=== PATIENT | male | born 1995 | race Caucasian/White ===

== ENCOUNTER 2020-11-27 04:20 | Emergency (ER) | payer OTHER, SELFPAY ==
[2020-11-27 04:28] VITALS: BP 150/83; PULSE 76; RESP 20; TEMP 36.6; O2SAT 100
--- NOTE | 2020-11-27 05:07 | ED.ABDPAIN ---
HPI - Abdominal Pain General Chief Complaint: Abdominal Pain Stated Complaint: abdominal pain Time Seen by Provider: 11/27/20 05:06 Source: patient Mode of arrival: ambulatory Limitations: no limitations History of Present Illness HPI narrative: Patient is a 25-year-old male complaining of upper abdominal pain, described as burning, 5 out of 10, nonradiating that started last night. Patient states that he took some [id number] medication that helped but the pain has recurred. Patient denies any chest pain, shortness of breath, nausea, vomiting, diarrhea, fever or chills. Related Data Allergies Allergy/AdvReac Type Severity Reaction Status Date / Time No Known Allergies Allergy Verified 11/27/20 04:21 Review of Systems Review of Systems: All systems reviewed & are unremarkable except as noted in HPI and below Constitutional: Constitutional: Denies body ache(s), Denies chills, Denies excessive sweating, Denies fatigue, Denies fever(s), Denies headache(s), Denies lethargy, Denies malaise, Denies weakness and Denies weight loss Eyes: Eyes: Denies blurry vision, Denies change in vision and Denies loss of vision ENT: Denies dizziness, Denies ear discharge, Denies headache(s), Denies lip swelling, Denies epistaxis, Denies nasal congestion, Denies neck pain, Denies throat swelling and Denies tongue swelling Cardiovascular: Cardiovascular: Denies chest pain, Denies chest pain at rest, Denies chest pain with activity, Denies diaphoresis, Denies rapid heart rate, Denies edema, Denies irregular heart rhythm, Denies lightheadedness, Denies palpitations, Denies dyspnea and Denies dyspnea on exertion Respiratory: Respiratory: Denies chest congestion, Denies cough, Denies hemoptysis, Denies dyspnea and Denies dyspnea on exertion Gastrointestinal: Gastrointestinal: Denies melena, Denies hematochezia, Denies diarrhea, Denies nausea, Denies vomiting and Denies hematemesis Musculoskeletal: Musculoskeletal: Denies abnormal gait, Denies deformity, Denies joint swelling, Denies limited range of motion, Denies neck pain and Denies numbness Neurologic: Denies Abnormal speech present, Denies abnormal gait, Denies confusion, Denies dizziness, Denies headache(s), Denies focal weakness, Denies loss of vision, Denies numbness, Denies Other visual disturbances, Denies Sensory deficit (Neuro) and Denies weakness Psychiatric: Psychiatric: Denies confusion, Denies depression, Denies auditory hallucinations, Denies homicidal ideation and Denies suicidal ideation Endocrine: Endocrine: Denies cold intolerance, Denies excessive sweating, Denies fatigue, Denies heat intolerance and Denies palpitations Hematologic/Lymphatic: Hematologic/Lymphatic: Denies easy bleeding and Denies easy bruising Allergic/Immunologic: Allergic/Immunologic: Denies lip swelling, Denies throat swelling and Denies tongue swelling PMFSH Past Medical History Medical History Ankle impingement syndrome, right Anxiety Coughing Fever Osteochondral lesion of talar dome Family History Family History Mother Family history of thyroid disease Hypertension Family history of heart disease in male family member before age 55 Sibling Family history of thyroid disease Father Depression Hypertension Other Arthritis Social History Social History Second hand tobacco smoke exposure: No Alcohol intake: current Substance use: current Last use: patient stated that he has not used marijuana in 4 months Gender identity (if verbalized by the patient): Male Exam Const: General: cooperative, healthy appearing, comfortable, no acute distress, well developed, alert and awake; No confusion Orientation/consciousness: oriented to person, oriented to place, oriented to time, patient oriented x3 and No confusion Limitati
[2020-11-27 05:11] LABS: Basophils Absolute Auto 0.1 K/mm3 (0.0-0.1); Basophils Percent Auto 0.5 % (0.2-1.2); Eosinophils Absolute Auto 0.1 K/mm3 (0-0.3); Eosinophils Percent Auto 0.6 % (0-4.4); Hematocrit 43.3 % (42.0-52.0); Hemoglobin 15.2 g/dL (14.0-18.0); Immature Granulocyte Absolute 0.06 K/mm3 (0.00-0.031); Immature Granulocyte Percent A 0.5 % (0-0.5); Lymphocytes Absolute Auto 1.53 K/mm3 (0.9-3.2); Lymphocytes Percent Auto 13.2 % (18.3-44.2); Mean Corpuscular HGB Conc 35.1 g/dl (32-36); Mean Corpuscular Hemoglobin 29.2 pg (26-34); Mean Corpuscular Volume 83.3 fl (80-100); Mean Platelet Volume 10.4 fl (7.4-10.4); Monocytes Percent Auto 8.3 % (2.6-8.5); Neutrophils Absolute Auto 8.9 K/mm3 (1.3-6.7); Neutrophils Percent Auto 76.9 % (45.5-73.1); Platelet Count Result 258 k/mm3 (150-375); Red Cell Distribution Width 12.6 % (11.5-14.5); White Blood Count 11.6 K/mm3 (4.5-10.0)
[2020-11-27 05:20] LABS: Alanine Aminotransferase 35 U/L (4-50); Albumin Level 4.9 g/dL (3.5-5.1); Alkaline Phosphatase 63 U/L (38-126); Anion Gap 10 mmol/L (8-16); Aspartate Amino Transferase 26 U/L (17-59); Bilirubin,Total 0.6 mg/dL (0.2-1.3); Blood Urea Nitrogen 9 mg/dL (9-20); Calcium 9.8 mg/dL (8.4-10.2); Carbon Dioxide 29 mmol/L (22-30); Chloride 101 mmol/L (98-107); Estimated CRCL calculation 188 ml/min; Estimated Glomerular Filt Rate > 60; Glucose 117 mg/dL (75-110); Lipase 65 U/L (23-300); Potassium 3.1 mmol/L (3.4-5.0); Sodium 140 mmol/L (137-145)
[2020-11-27 05:37] LABS: Add Urine Microscopic? YES; Appearance Urine Clear (Clear); Bacteria Urine Trace /hpf; Bilirubin Urine Negative (Negative); Blood Urine Negative (Negative); Calcium Oxalate Crystals Urine Present /hpf; Color Urine Yellow (Yellow); Glucose Urine UA Negative (Negative); Ketones Urine 1+ mg/dL (Negative); Leukocyte Esterase Ur Negative LEU/UL (Negative); Mucus Urine Rare /lpf; Nitrate Urine Negative (Negative); Protein Urine 1+ mg/dL (Negative); Urobilinogen Urine Negative mg/dL (<2.0); WBC Urine 0-3 /hpf
[2020-11-27] MEDS: FAMOTIDINE 20 MG TABLET 40 MG PO (05:40)
[2020-11-27] MEDS: BELLADONNA ALK/PHENOB ELIX 10 ML, MAG HYDROX/ALUMINUM HYD/SIMETH 30 ML, LIDOCAINE HCL 2... PO (05:41)
[2020-11-27 05:55] VITALS: BP 126/76; PULSE 58; RESP 20; O2SAT 100
--- NOTE | 2020-11-27 06:03 | ECG_ITS ---
Measurements Intervals [place] Rate: 57 P: 42 [place]: 181 QRS: 61 QRSD: 100 T: 39 QT: 408 QTc: 398 Interpretive Statements SINUS BRADYCARDIA WITH SINUS ARRHYTHMIA BORDERLINE ECG Electronically Signed On 11-27-2020 7:35:26 CDT by Ren Burnham D.O.
[2020-11-27 06:19] VITALS: BP 119/72; PULSE 77; RESP 20; O2SAT 100
[2020-11-27] MEDS: POTASSIUM CHLORIDE 20 MEQ PACKET (FOR LIQUID) 40 MEQ PO (06:19)
== END 2020-11-27 06:49 | disposition home or self-care (01) ==
PROVIDERS: Emergency Provider Emergency Medicine; PCP Internal Medicine
DX: K29.00 Acute gastritis without bleeding (principal)
CPT/HCPCS: 36415; 80053; 81001; 83690; 85025; 93005; 99283; A9270

== ENCOUNTER 2024-11-11 17:17 | Emergency (ER) | payer OTHER, SELFPAY ==
--- NOTE | 2024-11-11 17:19 | ED.EAR ---
HPI - Ear Problem General Chief complaint: Ear Stated complaint: Right Earache Time Seen by Provider: 11/11/24 17:20 Source: patient Mode of arrival: ambulatory Limitations: no limitations History of Present Illness HPI Narrative: Brian is a 29 year old male patient presenting to the clinic today with complaints of right ear pain x3 days. He reports no fever, chills, body aches, runny nose, cough, or congestion. No recent swimming. Related Data Home Medications ?Medication ?Instructions ?Recorded ?Confirmed ?Last Taken ?Type multivit,calc,mins-folic 240 1 tablet PO DAILY 05/05/21 10/15/24 Unknown History mcg-vit K1 30 mcg-lycopene 300 mcg tablet (One-A-Day Men's Complete) cholecalciferol (vitamin D3) 50 50 mcg PO DAILY 10/15/24 10/15/24 Unknown History mcg (2,000 unit) capsule Allergies Allergy/AdvReac Type Severity Reaction Status Date / Time No Known Allergies Allergy Verified 10/15/24 08:23 Review of Systems Review of Systems: Pertinent positives per HPI. Patient denies any fever, chills, rash, headache, visual changes, dizziness, cough, runny nose, sore throat, shortness of breath, chest pain, palpitations, nausea, vomiting, diarrhea, constipation, abdominal pain, or any urinary issues. [facility] Past Medical History Medical History Anxiety Coughing Fever Ankle impingement syndrome, right Osteochondral lesion of talar dome Family History Family History Mother Family history of thyroid disease Hypertension Family history of heart disease in male family member before age 55 Heart disease Sibling Family history of thyroid disease Hypertension Father Depression Hypertension Alcoholism Diabetes mellitus Other Arthritis Social History Social History Smoking status: Never smoker Second hand tobacco smoke exposure: No Alcohol intake: former Substance use: never Last use: patient stated that he has not used marijuana in 4 months Do You Feel Safe in your Home?: Yes Lack of Transportation: No Lack of Food: Never True Current Housing: Decline to Answer Concerned About Future Housing: Decline to Answer Difficulty Paying Gas/Electric Bills: Decline to Answer Difficulty Paying for Meds: Decline to Answer Currently Unemployed: Decline to Answer Education: Decline to Answer Difficulty w/ Childcare or Family Care: Decline to Answer Occupation/Education: occupation Gender identity (if verbalized by the patient): Male Spiritual care concerns: No Agree to blood products: Yes Comments At the time of my signature, I reviewed and agree with the nursing past medical, surgical, social, and family history. There is no relevant family history pertinent to the patient complaint. Exam Narrative: General: Well-developed, well nourished, in no apparent distress Head: Normocephalic, atraumatic Eyes: Pupils equally round and reactive to light bilaterally, EOM intact, sclera and conjunctive clear, no discharge, lids normal Ears: Left TMs intact and clear, right TM intact, bulging, red, ear canals clear, no drainage, grossly hearing normal. Nose: Nares patent, no discharge, no inflammation, no sinus tenderness. Mouth: Oropharynx without lesions or masses, good dentition, MMM. Neck: Supple, trachea midline, no enlargement of anterior or posterior cervical nodes, no thyroid masses or goiter palpable. Cardio: Regular rate and rhythm, s1 and s2 normal, no murmur appreciated. Resp: Clear to auscultation bilaterally anteriorly and posteriorly, no rhonchi, rales, wheezing or rubs Course Course Emergency Course: Portions of this record may have been created with voice recognition software. Level of Care: Express Care Visit Vital Signs Vital signs: Vital signs reviewed Medical Decision Making MDM Narrative Medical decision making narrative: At the time of visit patient is resting comfortably on the exam table. Patient appears to be nontoxic. Plan: I suspect patient has right otitis media. Prescription for amoxicillin was sent to pharmacy. Supportive measures were discussed with the patient and they voiced understanding discharge instructions and agrees to treatment plan. Return precautions reviewed Differential Diagnosis Differential Diagnosis: Otitis media, otitis externa, eustachian tube dysfunction, cerumen impaction, upper respiratory infection, serous otitis Discharge Plan Discharge Clinical Impression: Acute right otitis media Patient Disposition: Home Condition: Stable Instructions: Antibiotic Form, Ear Infection (ED) Additional Instructions: Take any prescribed medications only as directed-amoxicillin Tylenol/motrin as needed for pain May use heating pad to alleviate pain If you get recurrent ear infections it may be warranted to follow up with ENT. Follow up with your PCP in 3-5 days if symptoms persist. Patient Language: Sri Lankan Prescriptions: New amoxicillin 875 mg tablet 875 mg PO Q12H 7 Days Qty: 14 0RF No Action cholecalciferol (vitamin D3) 50 mcg (2,000 unit) capsule 50 mcg PO DAILY One-A-Day Men's Complete 240 mcg-30 mcg- 300 mcg tablet 1 tablet PO DAILY hydrochlorothiazide 12.5 mg tablet 12.5 mg PO DAILY Qty: 90 1RF Follow-up/Referrals: Heidi Pimentel APRN [Primary Care Provider] - Time of Disposition: 17:27 Quality NIHSS Nursing Documentation ED NIHSS nursing documentation: reviewed/agree
[2024-11-11 17:25] VITALS: BP 120/78; PULSE 83; RESP 20; TEMP 36.8; O2SAT 99
== END 2024-11-11 17:30 | disposition home or self-care (01) ==
PROVIDERS: Emergency Provider Nurse Practitioner Family; PCP Nurse Practitioner Family
DX: H66.91 Otitis media, unspecified, right ear (principal)
CPT/HCPCS: 99213; G0463

== ENCOUNTER 2024-11-17 14:28 | Emergency (ER) | payer OTHER, SELFPAY ==
[2024-11-17 14:39] VITALS: BP 138/81; PULSE 96; RESP 16; TEMP 36.4; O2SAT 100
--- NOTE | 2024-11-17 14:44 | ED_ITS ---
HPI - Ear Problem General Chief complaint: Ear Stated complaint: L EARACHE Time Seen by Provider: 11/17/24 14:44 Source: patient Mode of arrival: ambulatory Limitations: no limitations History of Present Illness HPI Narrative: 9-year-old male presented for complaint of left ear pain and drainage and decreased hearing. Onset yesterday. Patient is currently taking amoxicillin for a right ear infection as prescribed on 11/11. Says the right ear pain is improved. denies dizziness, tinnitus, nausea vomiting fevers chills. MD Complaint: ear pain Related Data Home Medications Medication Instructions Recorded Confirmed Last Taken Type multivit,calc,mins-folic 240 1 tablet PO DAILY 05/05/21 11/17/24 Unknown History mcg-vit K1 30 mcg-lycopene 300 mcg tablet (One-A-Day Men's Complete) cholecalciferol (vitamin D3) 50 50 mcg PO DAILY 10/15/24 11/17/24 Unknown History mcg (2,000 unit) capsule Allergies Allergy/AdvReac Type Severity Reaction Status Date / Time No Known Allergies Allergy Verified 10/15/24 08:23 Review of Systems Review of Systems: CONSTITUTIONAL: Denies malaise, chills, or fever. EYES: Denies visual changes, redness, or discharge. ENT: Denies rhinorrhea, congestion, sinus pain, and sore throat. Reports ear pain CARDIOVASCULAR: Denies chest pain, palpitations, or edema. RESPIRATORY: Denies cough or dyspnea. GASTROINTESTINAL: Denies abdominal pain, nausea, vomiting, diarrhea SKIN: Denies rash or itching. MUSCULOSKELETAL: Denies myalgia. NEUROLOGIC: Denies headache. All systems reviewed & are unremarkable except as noted in HPI and below PMFSH Past Medical History Medical History Anxiety Coughing Fever Ankle impingement syndrome, right Osteochondral lesion of talar dome Family History Family History Mother Family history of thyroid disease Hypertension Family history of heart disease in male family member before age 55 Heart disease Sibling Family history of thyroid disease Hypertension Father Depression Hypertension Alcoholism Diabetes mellitus Other Arthritis Social History Social History Smoking status: Never smoker Second hand tobacco smoke exposure: No Alcohol intake: former Substance use: never Last use: patient stated that he has not used marijuana in 4 months Do You Feel Safe in your Home?: Yes Lack of Transportation: No Lack of Food: Never True Current Housing: Decline to Answer Concerned About Future Housing: Decline to Answer Difficulty Paying Gas/Electric Bills: Decline to Answer Difficulty Paying for Meds: Decline to Answer Currently Unemployed: Decline to Answer Education: Decline to Answer Difficulty w/ Childcare or Family Care: Decline to Answer Occupation/Education: occupation Gender identity (if verbalized by the patient): Male Spiritual care concerns: No Agree to blood products: Yes Comments At time of signature, agree with nursing past medical, surgical, social and family history. There is no relevant family history pertinent to the presenting complaint Exam Narrative: GENERAL: Well-appearing EYES: conjunctivae clear ENT: Nares clear. Mucous membranes moist. Left TM erythematous, bulging and intact; canal erythematous with drainage, no tragal tenderness. Right TM mildly erythematous with purulent effusion. Oropharynx not erythematous without lesions. no drooling, no hoarseness, no trismus, uvula midline. NECK: Supple. No lymphadenopathy CHEST: Clear to auscultation, breath sounds equal. HEART: Regular rate and rhythm. NEURO: Alert and oriented x3. PSYCH: Normal mood and affect Course Course Emergency Course: Patient is aware of diagnosis, understands and agrees to treatment plan. Anticipatory guidance given. Patient agrees to follow-up as directed and is aware of reasons to seek care at the emergency department. Portions of this record may have been created with voice recognition software Level of Care: Express Care Visit Vital Signs Vital signs: Vital Signs Temperature 97.6 F 11/17/24 14:39 Pulse Rate 96 11/17/24 14:39 Respiratory Rate 16 11/17/24 14:39 Blood Pressure 138/81 11/17/24 14:39 Pulse Oximetry 100 11/17/24 14:39 Temperature 97.6 F 11/17/24 14:39 Pulse Rate 96 11/17/24 14:39 Respiratory Rate 16 11/17/24 14:39 Blood Pressure 138/81 11/17/24 14:39 Pulse Oximetry 100 11/17/24 14:39 Reviewed Medical Decision Making MDM Narrative Medical decision making narrative: Discussed physical exam findings consistent with left AOM, OE, and right AOM. Advised supportive measures and signs/symptoms to go to the ER. Patient is appropriate for outpatient treatment and follow-up. Differential Diagnosis Differential Diagnosis: Coronavirus, strep pharyngitis, allergic rhinitis, upper respiratory tract infection, sinusitis, rhinosinusitis, nasopharyngitis, viral pharyngitis, otitis media, otitis externa, eustachian tube dysfunction, foreign body, cerumen impaction. Vital Signs Vital Signs: Vital Signs Temperature 97.6 F 11/17/24 14:39 Pulse Rate 96 11/17/24 14:39 Respiratory Rate 16 11/17/24 14:39 Blood Pressure 138/81 11/17/24 14:39 Pulse Oximetry 100 11/17/24 14:39 Temperature 97.6 F 11/17/24 14:39 Pulse Rate 96 11/17/24 14:39 Respiratory Rate 16 11/17/24 14:39 Blood Pressure 138/81 11/17/24 14:39 Pulse Oximetry 100 11/17/24 14:39 Discharge Plan Discharge Clinical Impression: Otitis externa Qualifiers: Otitis externa type: unspecified type Chronicity: acute Laterality: left Qualified Code(s): H60.502 - Unspecified acute noninfective otitis externa, left ear Otitis media Qualifiers: Otitis media type: suppurative Chronicity: acute Laterality: left Recurrence: non-recurrent Spontaneous tympanic membrane rupture: without spontaneous rupture Qualified Code(s): H66.002 - Acute suppurative otitis media without spontaneous rupture of ear drum, left ear Patient Disposition: Home Condition: Stable Instructions: Antibiotic Form, Swimmer's Ear (ED), Ear Infection (ED) Additional Instructions: Swimmer's ear is an infection in the outer ear canal, which runs from your eardrum to the outside of your head. It's often caused by water that remains in your ear, creating a moist environment that encourages the growth of bacteria. Take antibiotic drops as directed. Tylenol and ibuprofen every 8 hours as needed to reduce fever, pain Avoid water or anything into the ear for one week Take antibiotics as directed. Stop the amoxicillin as prescribed 11/11. Recommend antihistamine such as Benadryl, Zyrtec or Ellie for sinus congestion Flonase nasal spray, 1 spray in each nostril once daily until symptoms improve Symptomatic treatment includes: rest, fluids, and increase humidity of the air at home. Tylenol 1000mg every 8 hours as needed to reduce fever, pain Please schedule a follow-up visit with your personal physician for further evaluation and treatment within 3-5days. If your symptoms persist, change or worsen significantly, go to the emergency department for further evaluation. Patient Language: Nigerien Prescriptions: New amoxicillin-pot clavulanate 875-125 mg tablet 1 tablet PO Q12H 7 Days Qty: 14 0RF ciprofloxacin-dexamethasone 0.3-0.1 % drops,suspension 4 drp LEFT EAR Q12H 7 Days Qty: 7.5 0RF No Action amoxicillin 875 mg tablet 875 mg PO Q12H 7 Days Qty: 14 0RF cholecalciferol (vitamin D3) 50 mcg (2,000 unit) capsule 50 mcg PO DAILY One-A-Day Men's Complete 240 mcg-30 mcg- 300 mcg tablet 1 tablet PO DAILY hydrochlorothiazide 12.5 mg tablet 12.5 mg PO DAILY Qty: 90 1RF Follow-up/Referrals: Heidi Pimentel APRN [Primary Care Provider] - Time of Disposition: 15:04
== END 2024-11-17 15:08 | disposition home or self-care (01) ==
PROVIDERS: Emergency Provider Nurse Practitioner Family; PCP Nurse Practitioner Family
DX: H60.502 Unspecified acute noninfective otitis externa, left ear (principal); H66.002 Acute suppurative otitis media without spontaneous rupture of ear drum, left ear
CPT/HCPCS: 99213; G0463

== ENCOUNTER 2025-02-13 09:09 | Outpatient (CLI) | payer OTHER, SELFPAY ==
--- OUTSIDE RECORDS SUMMARY | 2025-02-13 09:19 | XMS_ITS | Patient Health Record ---
Author Organization [facility] Address [address] [place] [address] Care Team Providers Care Office Agent Name Role Phone Deacon Ortiz Unavailable [phone] Reason For Referral No Information Medications Medication SIG (Take, Route, Frequency, Duration) Notes Start Date End Date Status hydroCHLOROthiazide 12.5 MG Oral 12/24/2020 Active Omeprazole 40 MG Oral 12/24/2020 Ac tive Sertraline HCl 50 MG Oral 12/24/2020 Active Immunizations Vaccine Route Administration Date Status Comme nts DTP Unknown 1997 Administered DTP Unknown 1997 Administered DTP Unknown 04/08/1998 Administered DTP Unknown 06/12/2002 Administered Hep A, ped/adol, 2 dose Unknown 02/10/2012 Administered Hep B, adolescent or pediatr ic (11-19), 3 dose schedule Unknown 1997 Administered Hep B, adolescent or pediatr ic (11-19), 3 dose schedule Unknown 1997 Administered Hep B, adolescent or pediatr ic (11-19), 3 dose schedule Unknown 06/12/2002 Administered Hib, unspecified formulation Unknown 1997 Adminis tered Hib, unspecified formulation Unknown 04/08/1998 Adminis tered Hib, unspecified formulation Unknown 05/17/1998 Adminis tered Influenza virus vaccine, quadrivalent (IIV4), split virus, 0.25 mL dosage Unknown 05/24/2011 Administered Influenza, seasonal, injecta ble, preservative free, 3 yrs and above Unknown 04/10/2015 Administered IPV Unknown 1997 Administered IPV Unknown 1997 Administered IPV Unknown 06/12/2002 Administered IPV Unknown 04/16/2003 Administered [place] Covid-19 Vaccine Unknown 10/11/2020 Administere d Meningococcal MCV4P Unknown 04/10/2015 Administered MMR Unknown 04/07/1998 Administered MMR Unknown 04/16/2003 Administered Novel [id number], preservative free Unknown 05/20/2016 Administered Varicella Unknown 04/16/2003 Administered Varicella Unknown 02/10/2012 Administered Plan Of Treatment No Information Insurance Providers Payer Name Payer Address Payer Phone Subscriber Number Group Number Insured Name Patient Relationship to Insured Coverage Start Date Coverage End Date [facility] [address] [place] [address] [id number] DAT RUANO Self - patient is the insured
--- OUTSIDE RECORDS SUMMARY | 2025-02-13 09:19 | XMS_ITS | Referral Summary ---
Author Organization [facility] - [facility] [place] [address] Care Team Providers Care Tank Welder Name Role Phone Justin Valladares MD Primary Care Provider + [phone] Source Comments The [facility] EMR consists of medical records from all [facility] ([facility]), the [facility] ([facility]), [facility], as well as other affiliates or partners, to include: [facility] in [place], [place], [facility], [facility], [facility], [facility] A[facility]hectics [facility], [facility], [place] [facility]), [place] [facility], and [facility]. The EMR may not contain all information available for this patient pursuant to the Care Everywhere program, as well as varying phases of implementation.[facility] Allergies No known active allergies Medications * Medications may not be up to date as of this document. Always verifycurrent medications with the patient. Cholecalciferol (Vitamin D3) 50 MCG (1999) tab Take 1 tab by mouth one time daily. Active Fluticasone Propionate (Flonase) 50 MCG/ACT nasal spray 2 sprays in each nostril one time daily. 48 g 3 Active Additional Information Patient not taking.Informant: Patient, Reported on 03/23/2024 Sertraline HCl (Zoloft) 50 MG tabIndications:M ood disorder TAKE 1 TABLET BY MOUTH EVERY DAY 90 tab 3 3 Active ONE-A-DAY MENS PO Take by mouth one time daily 1 tab 1 x Daily. Active hydroCHLOROthiaz frank 12.5 MG capIndications:P rimary hypertension Take 1 cap by mouth one time daily. 90 cap 3 4 Active Active Problems Problem Noted Date Diagnosed Date Elevated ALT measurement 03/23/2024 Severe obesity (BMI >= 40) 12/13/2022 Overview (03/23/2024): - minimal change in weight since 04/2023; weight max 341 lbs, wt 03/23/24 337 lbs - with emotional component (controlled), nutrition, snoring - check labs - Continue to work on healthy lifestyle and nutrition - continue w/ nutrition - should get sleep study - medications are an option - no contraindications - patient willing to pay out of pocket - will work with pharmacists in about 1 mo Assessment & Plan (03/23/2024 9:05 AM CDT): - minimal change in weight since 04/2023; weight max 341 lbs, wt 03/23/24 337 lbs - with emotional component (controlled), nutrition, snoring - check labs - Continue to work on healthy lifestyle and nutrition - continue w/ nutrition - should get sleep study - medications are an option - no contraindications - patient willing to pay out of pocket - will work with pharmacists in about 1 mo Assessment & Plan (12/13/2022 4:40 PM CDT): - with emotional component - see pt instructions - start w/ nutrition, noom ree, treat mood - f/u at next visit Primary hypertension 04/23/2022 Overview (03/23/2024): - diagnosed around 2019 - not checking BP at home; will; start checking - goal <120s/70s - HCTZ 12.5 mg qday Assessment & Plan (03/23/2024 8:52 AM CDT): - diagnosed around 2019 - not checking BP at home; will; start checking - goal <120s/70s - at goal - HCTZ 12.5 mg qday - no changes today Assessment & Plan (04/23/2022 10:41 AM CDT): - diagnosed around 2019 - not checking BP at home; will; start checking - goal <130/80 - HCTZ 12.5 mg qday until home BPs Mood disorder 04/23/2022 Overview (03/23/2024): - reports sx since age 15ish; hx major depressive disorder (hx active SI w/ attempt), but also anxious features - at goal as of 2022 - 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 or 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 and depression > adjustment disorder - contributing factors likely include work stress, lower sleep, cutting caffeine - Continue to work on healthy lifestyle and nutrition - sertraline 50 mg qday; worked; will trial off as of 03/23/24 Assessment & Plan (03/23/2024 8:55 AM CDT): - mood at goal now for > 1 year - will try to stop; go back on 50 mg if sx return Assessment & Plan (12/13/2022 4:39 PM CDT): - reports sx since age 15ish; hx major depressive disorder (hx active SI w/ attempt), but also anxious features - reports worsening irritability, anhedonia related to work; more anxiety driven - 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 I am referring them to the Primary Care Behavioral Health Clinician for evaluation and treatment within the Collaborative Care program.- Unable to do warm handoff today and counselor is out of the clinic. Assessment & Plan (04/23/2022 10:43 AM CDT): - hx major depressive disorder, but also anxious features - sertraline 50 mg qday; tolerating this well Immunizations Immunization Administration Dates Next Due COVID-19 (MODERNA 12+YR) MRN A, LNP-S, PF, 50 MCG/0.5 ML VACCINE 03/23/2024 COVID-19(MODERNA Bivalent) m RNA, LNP-S, PF, 50mcg/0.5mL or 25mcg/0.25mL Vaccine (Historical) 06/01/2022 Hepatitis A Vaccine (>/=19 Yrs) 03/23/2024 Influenza, Quadrivalent, Adriana l Culture, MDCK, PF Vaccine 06/01/2022 Influenza, Trivalent, PF Vaccine 03/23/2024 Influenza,Quadrivalent,PF (0.5 mL) Vaccine 04/20,05/20/2016 Social History Tobacco Use Types Packs/Day Years Used Date Smoking Tobacco: Never Passive Smoke Exposure: Never Smokeless Tobacco: Never Tobacco Cessation:Counseling Given: Not Answered Alcohol Use Standard Drinks/Week Comments Not Currently 0 (1 standard drink = 0.6 oz pur e alcohol) Depression Answer Date Recorded PHQ2/9 Depression Score: 0-4 Few to No Symptoms; 5-9 Minimal Symptoms; 10-14 Minor Depression, Dysthymia; 15-19 Major Depression, moderately severe; >20 Major Depression, severe 4 03/23/2024 Sex and Gender Information Value Date Recorded Sex Assigned at Not on file Legal Sex Male 9:46 AM CDT Gender Identity Not on file Sexual Orientation Not on file Last Filed Vital Signs Vital Sign Reading Time Taken Comments Blood Pressure 125/79 03/23/2024 8:42 AM CDT Pulse 88 03/23/2024 8:42 AM CDT Temperature 36.5 C (97.7 F) 12/20/2023 8:53 AM CDT Respiratory Rate 16 03/23/2024 8:42 AM CDT Oxygen Saturation 98% 04/08/2023 3:04 PM CDT Inhaled Oxygen Concentration - - Weight 152.9 kg (337 lb) 03/23/2024 8:45 AM CDT Height 182.5 cm (5' 11.85) 03/23/2024 8:45 AM C DT Body Mass Index 45.9 03/23/2024 8:45 AM CDT Plan of Treatment Not on file Procedures Procedure Name Priority Date/Time Associated Diagnosis Comments LIPID PANEL, FASTING Routine 03/23/2024 9:33 AM CDT Severe obesity (BMI >= 40) from Last 3 Months or Most Recently Relevant to Health Maintenance Results * (ABNORMAL) LIPID PANEL, FASTING (03/23/2024 9:33 AM CDT) Cholesterol 217(H) <200 mg/dL 03/23/2024 3:12 PM CDT [facility] Comment: Cholesterol: < 200 mg/dL Desirable 200-239 mg/dL Borderline High > 239 mg/dL High HDL Cholesterol 35(L) 40 - 125 mg/dL 03/23/2024 3:12 PM CDT [facility] Comment: HDL Cholesterol : NLA Classifications < 40 mg/dL Low Triglycerides 147 <150 mg/dL 03/23/2024 3:12 PM CDT [facility] Comment: Triglyceride : NLA Classifications < 150 mg/dL Normal 150-199 mg/dL Borderline High 200-499 mg/dL High > 499 mg/dL Very High LDL, Calculated 153(H) 0 - 129 mg/dL 03/23/2024 3:12 PM CDT [facility] Comment: LDL Cholesterol: NLA Classifications < 100 mg/dL Optimal 100-129 mg/dL Near Optimal 130-159 mg/dL Borderline High 160-189 mg/dL High > 189 mg/dL Very High Cholesterol, Non-HDL 182 mg/dL 03/23/2024 3:12 PM CDT [facility] Comment: Non HDL Cholesterol: NLA Classifications < 130 mg/dL Desirable 130-159 mg/dL Above Desirable 160-189 mg/dL Borderline High 190-219 mg/dL High > 219 mg/dL Very High Blood Venipuncture / Unknown 03/23/2024 9:33 AM CDT 03/23/2024 9:33 AM CDT us Justin Valladares MD LABORATORY Final Result [facility] [address] [place] [address], from Last 3 Months or Most Recently Relevant to Health Maintenance Care Teams Tank Welder Relationship Specialty Start Date End Date Justin Valladares MD [address] [place] [address] PCP - General Family Medicine 04/02/22
--- OUTSIDE RECORDS SUMMARY | 2025-02-13 09:19 | XMS_ITS | Clinical Summary ---
Author Organization [facility] and [facility] - [facility] [place] [address] Care Team Providers Care Conversion Developer Name Role Phone Justin Valladares MD Primary Care Provider + [phone] Source Comments The [facility] EMR consists of medical records from all [facility] ([facility]), the [facility] ([facility]), [facility], as well as other affiliates or partners, to include: [facility] in [place], [place], [facility], [facility] F[facility], [facility], [facility] Aesthectics and Plastic Surgery, [facility], [place] [facility]), [place] [facility], and [facility]. The EMR may not contain all information available for this patient pursuant to the Care Everywhere program, as well as varying phases of implementation.[facility] and [facility] Allergies No known active allergies Medications * [...] work on healthy lifestyle and nutrition - [facility] - agrees - sertraline 50 mg [...] Vaccine 03/23/2024 Influenza,Quadrivalent,PF (0.5 mL) Vaccine 04/20,05/20/2016 Family History Medical History Relation Name Comments Diabetes type II Father prediabetes Thyroid Disease Mother has hashimot is Valvular heart disease Mother daniel l valve prolapse probably form rheumatic fever Hypertension Sister Relation Name Status Comments Father Alive Mother Alive Sister Alive 2 sisters Social History Tobacco Use Types Packs/Day Years [...] 03/23/2024 8:45 AM CDT Plan of Treatment Health Maintenance Due Date Last Done Comments HIV One Time Screening (Age 18 to 65) 1997 DTaP/Tdap/Td Vaccination (5 - Tdap) 2008 06/12/2002, 04/08/1998, 1997, Additional history exists Hepatitis C One Time Screening (Age 18 to 80) 2015 Influenza Vaccination (#1) 03/04/202503/23, 04/20/2023, 06/01/2022, Additional history exists Lipid Screening 03/23/2029 03/23/2024, 04/30/2022 Zoster Vaccination (1 of 2) 2047 RSV Vaccination ( or age 60+) (1 - 1-dose 75+ series) 2072 Hib Vaccination Aged Out 05/17/1998, 12/1997, 1997 No longer eligible based on patient's age to complete this topic Hepatitis B Vaccination Completed 06/12/20, 1997, 1997 MMR Vaccination Completed 04/16/2003, 04/07/1998 Polio Vaccination Completed 04/16/2003, , 1997, Additional history exists Meningococcal (MCV4) Vaccination Completed 04/10/2015 COVID-19 Vaccination Completed 03/23/2024, 06/01/2022, 06/29/2021, Additional history exists Hepatitis A Vaccination Completed 03/23/2024, 02/09 HPV Vaccination Aged Out No longer el igible based on patient's age to complete this topic Meningococcal B Vaccination Aged Out No longer eligible based on patient's age to complete this topic Pneumococcal Vaccination: Pediatrics and At-Risk Patients Aged Out No longer eligible based on patient's age to complete this topic Procedures Procedure Name Priority Date/Time Associated Diagnosis Comments LIPID PANEL, FASTING Routine 03/23/2024 9:33 AM CDT Severe obesity (BMI >= 40) from Last 3 Months or Most Recently Relevant to Health Maintenance Results * (ABNORMAL) LIPID PANEL, FASTING (03/23/2024 9:33 AM CDT) Cholesterol 217(H) <200 mg/dL 03/23/2024 3:12 PM CDT [facility] Comment: Cholesterol: < 200 mg/dL Desirable 200-239 mg/dL Borderline High > 239 mg/dL High HDL Cholesterol 35(L) 40 - 125 mg/dL 03/23/2024 3:12 PM CDT [facility] Comment: HDL Cholesterol : NLA Classifications < 40 mg/dL Low Triglycerides 147 <150 mg/dL 03/23/2024 3:12 PM CDT [facility] Comment: Triglyceride : NLA Classifications < 150 mg/dL Normal 150-199 mg/dL Borderline High 200-499 mg/dL High > 499 mg/dL Very High LDL, Calculated 153(H) 0 - 129 mg/dL 03/23/2024 3:12 PM CDT [facility] Comment: LDL Cholesterol: NLA Classifications < 100 mg/dL Optimal 100-129 mg/dL Near Optimal 130-159 mg/dL Borderline High 160-189 mg/dL High > 189 mg/dL Very High Cholesterol, Non-HDL 182 mg/dL 03/23/2024 3:12 PM CDT [facility] Comment: Non HDL Cholesterol: NLA Classifications < 130 mg/dL Desirable 130-159 mg/dL Above Desirable 160-189 mg/dL Borderline High 190-219 mg/dL High > 219 mg/dL Very High Blood Venipuncture / Unknown 03/23/2024 9:33 AM CDT 03/23/2024 9:33 AM CDT us Justin Valladares MD LABORATORY Final Result [facility] [address] [place] [id number], from Last 3 Months or Most Recently Relevant to Health Maintenance Care Teams Conversion Developer Relationship Specialty Start Date End Date Justin Valladares MD [address] [place] [id number] PCP - General Family Medicine 04/02/22
--- OUTSIDE RECORDS SUMMARY | 2025-02-13 09:19 | XMS_ITS | Clinical Summary ---
Author Organization [facility] Address [address] [place] [address] Care Team Providers Care Cellar Hand Name Role Phone Delmer Cruz MD Primary Care Provider [phone] Source Comments [facility],non-owned Affiliates and Associated Physician Practices is amultiple site organization consisting of ambulatory clinics and hospital sitesin [place], [place], [place] and [place]. This disclosure is being madepursuant to the Care Everywhere program and may not contain all information available regarding this patient. Last updated 18.[facility] Immunizations Immunization Administration Dates Next Due INFLUENZA VACCINE, QUADR. (F LUZONE; FLULAVAL; FLUARIX; AFLURIA QUADRIVALENT; 6MO+), 0.5 ML (IIV4) 05/20/2016 Social History Tobacco Use Types Packs/Day Years Used Date Smoking Tobacco: Never Assessed Sex and Gender Information Value Date Recorded Sex Assigned at Not on file Legal Sex Male 5:38 AM MOLDER SWEEP Gender Identity Not on file Sexual Orientation Not on file Plan of Treatment Health Maintenance Due Date Last Done Comments HIV SCREENING 2012 HEPATITIS C SCREENING 03/09/2015 DTAP/TDAP/TD VACCINES (1 - Tdap) 2016 HEPATITIS B VACCINE (1 of 3 - 19+ 3-dose series) 2016 COVID-19 VACCINE ( - 2023-2 5 season) 2024 HPV VACCINE (1 - 3-dose SCDM series) 2024 DEPRESSION SCREENING 07/04/2024 INFLUENZA VACCINE (#1) 2025 05/20/2016 ZOSTER VACCINE (1 of 2) 2047 HIB VACCINE Aged Out No longer eligi ble based on patient's age to complete this topic MENINGOCOCCAL (Group B) VACC INE SHARED DECISION-MAKING Aged Out No longer eligibl e based on patient's age to complete this topic MENINGOCOCCAL GROUPS A/C/Y/W VACCINE Aged Out No longer eligible b ased on patient's age to complete this topic PNEUMOCOCCAL VACCINE Aged Out No long er eligible based on patient's age to complete this topic Insurance AETNA Care Teams Cellar Hand Relationship Specialty Start Date End Date Delmer Cruz MD [address] [place] [address] PCP - General Internal Medicine 05/20/16
--- NOTE | 2025-02-13 09:25 | EST_ITS ---
Patient Info Name: Brian Guzman Age: 29 years : 1995 Gender: Male Ht: 73 in Wt: 315 lbs BSA: 2.77 m2 HR: 73 bpm BP: 103 / 73 mmHg Exam Date: 02/13/2025 9:25 AM Patient Status: O Admit Date: 02/13/2025 Exam Type: CA stress test treadmill A treadmill exercise stress test was performed. Staff Referring Physician: Heidi Pimentel Attending Provider: Heidi Pimentel Exercise Technologist: Katherine Valerio Exercise Physician: Ren Burnham DO Summary 1. 1. Negative Ayaz exercise stress test for ischemic ST changes by ECG criteria. 2. 2. Reduced functional capacity, achieving 10 METs of workload. 3. 3. Appropriate HR response to exercise. 4. 4. Appropriate HR recovery at 1 minute post exercise. 5. 5. No imaging with stress testing. 6. 6. Patient informed of the above results. Protocol: Ayaz Stress ECG Details Stage: REST Duration (min): 4 min : 0 sec Speed (mph): 0.0 Grade (%): 0 HR (bpm): 73 SBP (mmHg): 103 DBP (mmHg): 73 METS: --- Stage: REST Duration (min): 14 min : 35 sec Speed (mph): 1.0 Grade (%): 0 HR (bpm): 91 SBP (mmHg): 103 DBP (mmHg): 73 METS: --- Stage: STAGE 1 Duration (min): 1 min : 0 sec Speed (mph): 1.7 Grade (%): 10 HR (bpm): 105 SBP (mmHg): 103 DBP (mmHg): 73 METS: --- Stage: STAGE 1 Duration (min): 2 min : 0 sec Speed (mph): 1.7 Grade (%): 10 HR (bpm): 120 SBP (mmHg): 103 DBP (mmHg): 73 METS: --- Stage: STAGE 1 Duration (min): 3 min : 0 sec Speed (mph): 1.7 Grade (%): 10 HR (bpm): 124 SBP (mmHg): 137 DBP (mmHg): 67 METS: --- Stage: STAGE 2 Duration (min): 1 min : 0 sec Speed (mph): 2.5 Grade (%): 12 HR (bpm): 132 SBP (mmHg): 137 DBP (mmHg): 67 METS: --- Stage: STAGE 2 Duration (min): 2 min : 0 sec Speed (mph): 2.5 Grade (%): 12 HR (bpm): 139 SBP (mmHg): 165 DBP (mmHg): 73 METS: --- Stage: STAGE 2 Duration (min): 3 min : 0 sec Speed (mph): 2.5 Grade (%): 12 HR (bpm): 147 SBP (mmHg): 165 DBP (mmHg): 73 METS: --- Stage: STAGE 3 Duration (min): 1 min : 0 sec Speed (mph): 3.4 Grade (%): 14 HR (bpm): 155 SBP (mmHg): 165 DBP (mmHg): 73 METS: --- Stage: STAGE 3 Duration (min): 2 min : 0 sec Speed (mph): 3.4 Grade (%): 14 HR (bpm): 161 SBP (mmHg): 165 DBP (mmHg): 73 METS: --- Stage: STAGE 3 Duration (min): 3 min : 0 sec Speed (mph): 3.4 Grade (%): 14 HR (bpm): 166 SBP (mmHg): 165 DBP (mmHg): 73 METS: --- Stage: STAGE 4 Duration (min): 0 min : 14 sec Speed (mph): 4.2 Grade (%): 16 HR (bpm): 170 SBP (mmHg): 165 DBP (mmHg): 73 METS: --- Stage: RECOVERY Duration (min): 0 min : 46 sec Speed (mph): 0.0 Grade (%): 0 HR (bpm): 145 SBP (mmHg): 165 DBP (mmHg): 73 METS: --- Stage: RECOVERY Duration (min): 1 min : 46 sec Speed (mph): 0.0 Grade (%): 0 HR (bpm): 130 SBP (mmHg): 165 DBP (mmHg): 73 METS: --- Stage: RECOVERY Duration (min): 2 min : 46 sec Speed (mph): 0.0 Grade (%): 0 HR (bpm): 115 SBP (mmHg): 129 DBP (mmHg): 63 METS: --- Stage: RECOVERY Duration (min): 3 min : 46 sec Speed (mph): 0.0 Grade (%): 0 HR (bpm): 111 SBP (mmHg): 129 DBP (mmHg): 63 METS: --- Stage: RECOVERY Duration (min): 4 min : 46 sec Speed (mph): 0.0 Grade (%): 0 HR (bpm): 111 SBP (mmHg): 131 DBP (mmHg): 62 METS: --- Stage: RECOVERY Duration (min): 5 min : 46 sec Speed (mph): 0.0 Grade (%): 0 HR (bpm): 106 SBP (mmHg): 131 DBP (mmHg): 62 METS: --- Stage: RECOVERY Duration (min): 6 min : 46 sec Speed (mph): 0.0 Grade (%): 0 HR (bpm): 106 SBP (mmHg): 125 DBP (mmHg): 64 METS: --- Stage: RECOVERY Duration (min): 7 min : 32 sec Speed (mph): 0.0 Grade (%): 0 HR (bpm): 108 SBP (mmHg): 125 DBP (mmHg): 64 METS: --- Rest HR: 91 bpm Peak HR: 171 bpm Rest Sys BP: 103 mmHg Peak Sys BP: 165 mmHg Max Pred HR: 193 bpm % Max Pred HR: 89 % Target HR: 164 bpm Max RPP: 28,215 bpm*mmHg Mccann Score: -1 Termination Reason: Reached target heart rate or workload Cardiac Symptoms: Shortness of breath Max ST Seg Deviation: 2.00 mm Total Time: 9 min : 14 sec Rest Enrique BP: 73 mmHg Peak Enrique BP: 73 mmHg Angina Score: None Total METS: 10.6 Resting ECG Sinus rhythm. Stress ECG No ST changes. Arrhythmias None. Report Signatures
== END 2025-02-13 09:10 | disposition home or self-care (01) ==
LOC: ANHCARD 09:11
PROVIDERS: PCP Nurse Practitioner Family; Visit Provider Nurse Practitioner Family
DX: R07.9 Chest pain, unspecified (principal)
CPT/HCPCS: 93017

== ENCOUNTER 2025-03-14 09:57 | Outpatient (CLI) | payer OTHER, SELFPAY ==
--- OUTSIDE RECORDS SUMMARY | 2025-03-14 11:11 | XMS_ITS | Clinical Summary ---
Author Organization [facility] - [facility] [place] [address] Care Team Providers Care Division Director Name Role Phone Justin Valladares MD Primary Care Provider + [phone] Source Comments The [facility] EMR consists of medical records from all [facility] ([facility]), the [facility] ([facility]), [facility], as well as other affiliates or partners, to include: [facility] in [place], [place], [facility], [facility], [facility], [facility] Aesthetics and Plastic Surgery, [facility], [place] [facility]), [place] [facility], and [facility]. The EMR may not contain all information available for this patient pursuant to the Care Everywhere program, as well as varying phases of implementation.[facility] and [facility] - [facility] Allergies No known active allergies Medications * [...] work on healthy lifestyle and nutrition - [facility] - agrees - sertraline 50 mg [...] history exists Meningococcal (MCV4) Vaccination Completed 04/10/2015 Hepatitis A Vaccination Completed 03/23/2024, 02/09 HPV [...] 217(H) <200 mg/dL 03/23/2024 3:12 PM CDT [facility] Comment: Cholesterol: < 200 mg/dL Desirable 200-239 mg/dL Borderline High > 239 mg/dL High HDL Cholesterol 35(L) 40 - 125 mg/dL 03/23/2024 3:12 PM CDT [facility] Comment: HDL Cholesterol : NLA Classifications < 40 mg/dL Low Triglycerides 147 <150 mg/dL 03/23/2024 3:12 PM CDT [facility] Comment: Triglyceride : NLA Classifications < 150 mg/dL Normal 150-199 mg/dL Borderline High 200-499 mg/dL High > 499 mg/dL Very High LDL, Calculated 153(H) 0 - 129 mg/dL 03/23/2024 3:12 PM CDT [facility] Comment: LDL Cholesterol: NLA Classifications < 100 mg/dL Optimal 100-129 mg/dL Near Optimal 130-159 mg/dL Borderline High 160-189 mg/dL High > 189 mg/dL Very High Cholesterol, Non-HDL 182 mg/dL 03/23/2024 3:12 PM CDT [facility] Comment: Non HDL Cholesterol: NLA Classifications < 130 mg/dL Desirable 130-159 mg/dL Above Desirable 160-189 mg/dL Borderline High 190-219 mg/dL High > 219 mg/dL Very High Blood Venipuncture / Unknown 03/23/2024 9:33 AM CDT 03/23/2024 9:33 AM CDT us Justin Valladares MD LABORATORY Final Result [facility] [address] [place] [address], [place] [phone] from Last 3 Months or Most Recently Relevant to Health Maintenance Care Teams Division Director Relationship Specialty Start Date End Date Justin Valladares MD [address] [place] [address] PCP - General Family Medicine 04/02/22
--- OUTSIDE RECORDS SUMMARY | 2025-03-14 11:11 | XMS_ITS | Referral Summary ---
Author Organization [facility] and [facility] [place] [address] Care Team Providers Care Customs Compliance Manager Name Role Phone Justin Valladares MD Primary Care Provider + [phone] Source Comments The [facility] EMR consists of medical records from all [facility] ([facility]), the [facility]. ([facility]), [facility], as well as other affiliates or partners, to include: [facility] in [place], [place], [facility], [facility], [facility], [facility], [facility], [facility]), [facility], and [facility]. The EMR may not contain all information available for this patient pursuant to the Care Everywhere program, as well as varying phases of implementation.[facility] and [facility] Allergies No known active allergies [...] work on healthy lifestyle and nutrition - [facility] - agrees - sertraline 50 mg qday; [...] 217(H) <200 mg/dL 03/23/2024 3:12 PM CDT [facility] Comment: Cholesterol: < 200 mg/dL Desirable 200-239 mg/dL Borderline High > 239 mg/dL High HDL Cholesterol 35(L) 40 - 125 mg/dL 03/23/2024 3:12 PM CDT [facility] Comment: HDL Cholesterol : NLA Classifications < 40 mg/dL Low Triglycerides 147 <150 mg/dL 03/23/2024 3:12 PM CDT [facility] Comment: Triglyceride : NLA Classifications < 150 mg/dL Normal 150-199 mg/dL Borderline High 200-499 mg/dL High > 499 mg/dL Very High LDL, Calculated 153(H) 0 - 129 mg/dL 03/23/2024 3:12 PM CDT [facility] Comment: LDL Cholesterol: NLA Classifications < 100 mg/dL Optimal 100-129 mg/dL Near Optimal 130-159 mg/dL Borderline High 160-189 mg/dL High > 189 mg/dL Very High Cholesterol, Non-HDL 182 mg/dL 03/23/2024 3:12 PM CDT [facility] Comment: Non HDL Cholesterol: NLA Classifications < 130 mg/dL Desirable 130-159 mg/dL Above Desirable 160-189 mg/dL Borderline High 190-219 mg/dL High > 219 mg/dL Very High Blood Venipuncture / Unknown 03/23/2024 9:33 AM CDT 03/23/2024 9:33 AM CDT us Justin Valladares MD LABORATORY Final Result [facility] [address] [place] [address], from Last 3 Months or Most Recently Relevant to Health Maintenance Care Teams Customs Compliance Manager Relationship Specialty Start Date End Date Justin Valladares MD [address] [place] [address] PCP - General Family Medicine 04/02/22
--- OUTSIDE RECORDS SUMMARY | 2025-03-14 11:11 | XMS_ITS | Patient Health Record ---
Author Organization [facility] [employer] Address [address] [place] [address] Care Team Providers Care Estimator And Drafter Name Role Phone Deacon Ortiz Unavailable [phone] Reason For Referral No Information Medications Medication SIG (Take, Route, Frequency, Duration) Notes Start Date End Date Status hydroCHLOROthiazide 12.5 MG Tablet Oral 12/24/2020 Active Omeprazole 40 MG Capsule Delayed Release Oral 12/24/2020 Active Sertraline HCl 50 MG Tablet Oral 12/24/2020 Active Immunizations Vaccine Route Administration [...] 04/07/1998 Administered MMR Unknown 04/16/2003 Administered Novel [id number], preservative free Unknown 05/20/2016 Administered Varicella Unknown 04/16/2003 Administered Varicella Unknown 02/10/2012 Administered Social History Social History Additional Details Category Social Info Options Details Migrated Social History Migrated Social History Alcohol Intake: None 12/24/2020,Tobacco Years: Never smoker 12/24/2020,Smoking Status: 0 12/24/2020 Plan Of Treatment No Information Insurance Providers Payer Name Payer Address Payer Phone Subscriber Number Group Number Insured Name Patient Relationship to Insured Coverage Start Date Coverage End Date [facility] [address] [place] [address] [id number] DAT RUANO Self - patient is the insured
--- NOTE | 2025-03-27 13:10 | WPDHOMESLEEP ---
Sleep Study - Home Unattended Date of Study: 03/14/25 Ordering Provider: Heidi Pimentel APRN Interpreting Provider: Ree Soliman, DO Home Sleep Study Type: Watch PAT Height: 1.83 m Weight: 142.882 kg Body Mass Index: 42.7 Neck Circumference (inches): 18 [place]: 3 Reason for Sleep Study Loud snoring, excessive daytime sleepiness, trouble falling and staying asleep Sleep History The patient is a 30-year-old male that had a sleep study ordered his primary care for evaluation of sleep apnea. He admits to snoring loudly, excessive daytime sleepiness, trouble falling asleep and trouble staying asleep. He denies having interruptions in breathing while asleep. He denies choking or gasping at night. He denies having trouble breathing on his back. He denies morning headaches. He does have a dry or sore mouth /throat in the morning. He denies nocturnal heartburn. He denies nocturia. He does have difficulty staying asleep. He denies having difficulty returning to sleep if he wakes up throughout the night. He denies any hypnotic or sedative use. He denies feeling anxious about sleep. He does feel tired or sleepy during the day. He does feel tired in the morning. He denies having the urge to fall asleep during the day. He does feel drowsy while driving. He denies sleep paralysis, cataplexy and hypnagogic/ hypnopompic hallucinations. He does clench or grind his teeth. He denies kicking or jerking his legs excessively. He denies having a restless feeling in his legs. He goes to bed at midnight. It takes him 45 minutes to fall asleep. He gets 7 hours of sleep on work days and 9 hours and 15 minutes on his days off. His sleep is somewhat restorative on his days off. He does take planned naps in the afternoon that her less than an hour. His naps are restorative. He denies dream enactment behavior. He denies sleep walking. He consumes 3-4 cups of caffeinated beverage per day. He denies tobacco and alcohol use. He exercises 1-2 nights per week. [facility] Past Medical History Medical History Anxiety Coughing Fever Ankle impingement syndrome, right Osteochondral lesion of talar dome Family History Family History Mother Family history of thyroid disease Hypertension Family history of heart disease in male family member before age 55 Heart disease Sibling Family history of thyroid disease Hypertension Father Depression Hypertension Alcoholism Diabetes mellitus Other Arthritis Social History Social History Smoking status: Never smoker Second hand tobacco smoke exposure: No Alcohol intake: former Substance use: never Last use: patient stated that he has not used marijuana in 4 months Do You Feel Safe in your Home?: Yes Lack of Transportation: No Lack of Food: Never True Current Housing: Decline to Answer Concerned About Future Housing: Decline to Answer Difficulty Paying Gas/Electric Bills: Decline to Answer Difficulty Paying for Meds: Decline to Answer Currently Unemployed: Decline to Answer Education: Decline to Answer Difficulty w/ Childcare or Family Care: Decline to Answer Occupation/Education: occupation Gender identity (if verbalized by the patient): Male Spiritual care concerns: No Agree to blood products: Yes Medications Home Medications ?Medication ?Instructions ?Recorded ?Confirmed ?Type multivit,calc,mins-folic 240 1 tablet PO DAILY 05/05/21 02/26/25 History mcg-vit K1 30 mcg-lycopene 300 mcg tablet (One-A-Day Men's Complete) hydrochlorothiazide 12.5 mg tablet 12.5 mg PO DAILY #90 tabs 01/28/22 02/26/25 Rx cholecalciferol (vitamin D3) 50 50 mcg PO DAILY 10/15/24 02/26/25 History mcg (2,000 unit) capsule ciprofloxacin 0.3 %-dexamethasone 4 drp LEFT EAR Q12H 7 days #7.5 mL 11/17/24 02/26/25 Rx 0.1 % ear drops,suspension Sleep Procedure The sleep study was completed using [employer] a technically adequate device with seven channels: peripheral arterial tone, actigraphy, body position, snore, respiratory movement, pulse oximetry, sleep staging, and heart rate. Prior to using the device, the patient received verbal and written instructions for its application and was provided with the help desk phone number for additional telephonic instruction with 24-hour availability of qualified personnel to answer questions. The study was scored using CMS guidelines. Sleep Architecture The total recording time is 8 hrs, 32 min. The total sleep time is 7 hrs, 41 min. Sleep latency is 19 minutes. REM latency is 91 minutes. The patient had 5 episodes of waking. Sleep architecture shows 21.7% deep sleep, 55.0% light sleep, and (as % Total Sleep Time) showed NREM (Light 55.0%; Deep 21.7%), and a 23.3% stage REM. The patient spent 4.8% of total sleep time in the supine position. Sleep efficiency was 90.04. Respiratory Analysis The overall AHI (pAHI 4%:) is 8.2. The overall AHI (pAHI 3%:) is 14.1. The central AHI is 1.2. The AHI was 10.9 in NREM and 24.8 in REM sleep. The AHI was 76.9 in Supine and 11.0 in Non-supine sleep. Percent of Shiv Yoon respirations is 0.0. Oximetry Data The oxygen desaturation index (DANAE 4%:) is 5.1. The mean saturation is 94%, and the lowest saturation is 91%. Time spent with saturation < 88% is 0.0 minutes. Snoring Profile Snoring average intensity is 41 dB. The patient snored above 45 decibels for 28.6 minutes, 6.2% of sleep time. Cardiac Profile The average pulse rate is 62 beats per minutes. The lowest pulse rate is 45 bpm. The highest pulse rate reported is 97 bpm. Atrial fibrillation was not detected. Premature beats occur <0.1 per minute. Assessment and Plan Assessment and Plan (1) BENJAMIN (obstructive sleep apnea): Code(s): G47.33 - Obstructive sleep apnea (adult) (pediatric) Status: Acute Assessment and Plan: The patient had an overall AHI of 8.2 with desaturation down to 91%. This is consistent with mild sleep apnea. Due to the patient's hypertension, he qualifies for treatment. I recommend that the patient be prescribed AutoPAP 5-15 cm H2O, CPAP mask/filters/tubing and heated humidity. A mandibular advancement device is also an acceptable treatment option. This should be used with all episodes of sleep.? Compliance should be reviewed within 31-90 days of starting therapy for usage greater than 4 hours per night greater than 70% of the nights. The patient should be asked about symptoms such as?excessive daytime sleepiness, quality of sleep, decreased nocturia, increased?mental functioning such as memory, mood, and concentration. Data The data obtained during this sleep study is adequate for interpretation. Certification This sleep study has been reviewed by a board certified sleep medicine physician.
[2025-03-28 07:16] VITALS: BMI 42.7
== END 2025-03-15 12:43 | disposition home or self-care (01) ==
PROVIDERS: PCP Nurse Practitioner Family; Visit Provider Nurse Practitioner Family
DX: G47.33 Obstructive sleep apnea (adult) (pediatric) (principal); R73.03 Prediabetes; I10 Essential (primary) hypertension; E66.9 Obesity, unspecified; Z68.41 Body mass index [BMI] 40.0-44.9, adult
CPT/HCPCS: 95800